=== PATIENT | male | born 1980 | race Caucasian/White ===

== ENCOUNTER 2018-02-09 14:27 | Emergency (ER) | payer SELFPAY ==
[2018-02-09 16:13] LABS: BASOPHILS 0.2 % (0-2); EOSINOPHILS 2.5 % (0-7); HEMATOCRIT 41.8 % (42.0-54.0); HEMOGLOBIN 14.8 g/dL (13.5-17.5); LYMPHOCYTES 27.1 % (15-50); MCHC 35.4 g/dL (31.0-37.0); MCV 93.1 fL (80.0-100.0); MEAN PLATELET VOLUME 10.2 fL (7.4-10.4); MONOCYTES 11.5 % (2-11); NEUTROPHILS 58.7 % (40-80); PLATELET COUNT 189 10x3/uL (130-400); RBC 4.49 10x6/uL (4.20-6.10); RDW 12.7 % (11.5-14.5)
[2018-02-09 16:34] LABS: ALBUMIN 3.2 g/dL (3.4-5.0); ALKALINE PHOSPHATASE 62 U/L (46-116); ALT (SGPT) 24 U/L (10-68); BILIRUBIN - TOTAL 0.35 mg/dL (0.2-1.3); C-REACTIVE PROTEIN 7.9 mg/dL (0.0-0.9); CALC OSMOLALITY 272 mosm/kg (275-300); CALCIUM 8.9 mg/dL (8.5-10.1); CARBON DIOXIDE 23.3 mmol/L (21.0-32.0); CHLORIDE - SERUM 103 mmol/L (98-107); CREATININE - SERUM 0.8 mg/dL (0.6-1.3); GLUCOSE 88 mg/dL (74-106); PROTEIN - SERUM 7.5 g/dL (6.4-8.2); SODIUM 138 mmol/L (136-145); UREA NITROGEN 8 mg/dL (7-18); eGFR NON AFRICAN AMERICAN > 90 mL/min (90-120)
== END 2018-02-09 18:04 | disposition home or self-care (01) ==
LOC: D.ER 14:27
PROVIDERS: Nurse Practitioner Family
DX: L03.115 Cellulitis of right lower limb (principal); S81.841A Puncture wound with foreign body, right lower leg, initial encounter; X58.XXXA Exposure to other specified factors, initial encounter; Y93.9 Activity, unspecified; Y92.9 Unspecified place or not applicable; I10 Essential (primary) hypertension

== ENCOUNTER 2019-10-11 12:33 | Emergency (ER) | payer MEDICAID ==
[~2019-10-11] VITALS: Ht 185.4 cm; Wt 100.0 kg
[2019-10-11 12:37] VITALS: Ht 185.4 cm; Wt 100.0 kg
[2019-10-11 12:56] LABS: APPEARANCE CLOUDY (CLEAR); COLOR ORANGE (YELLOW)
[2019-10-11 12:58] LABS: BACTERIA MODERATE /hpf (NEGATIVE); EPITHELIAL CELLS NSEEN /hpf (0-5); WHITE CELLS - URINE >50 /hpf (NEGATIVE)
[2019-10-11] MEDS ORDERED: DOXYCYCLINE HY100 M2 PO (13:25)
[2019-10-11 14:02] LABS: BASOPHILS 0.2 % (0-2); EOSINOPHILS 0.9 % (0-7); HEMOGLOBIN 15.1 g/dL (13.5-17.5); IMMATURE GRANULOCYTES 0.5 % (0-5); LYMPHOCYTES 15.7 % (15-50); MCH 32.5 pg (26.0-34.0); MCHC 34.3 g/dL (31.0-37.0); MCV 94.6 fL (80.0-100.0); MEAN PLATELET VOLUME 9.7 fL (7.4-10.4); MONOCYTES 11.5 % (2-11); NEUTROPHILS 71.2 % (40-80); RBC 4.65 10x6/uL (4.20-6.10); RDW 12.3 % (11.5-14.5); WBC 13.3 10x3/uL (4.8-10.8)
[2019-10-11 14:04] LABS: PLATELET COUNT 230 10x3/uL (130-400)
[2019-10-11 14:12] LABS: CALC OSMOLALITY 275 mosm/kg (275-300); CALCIUM 9.3 mg/dL (8.5-10.1); CARBON DIOXIDE 32.9 mmol/L (21.0-32.0); CHLORIDE - SERUM 101 mmol/L (98-107); CREATININE - SERUM 0.9 mg/dL (0.6-1.3); GLUCOSE 113 mg/dL (74-106); POTASSIUM - SERUM 4.5 mmol/L (3.5-5.1); SODIUM 138 mmol/L (136-145); UREA NITROGEN 9 mg/dL (7-18); eGFR NON AFRICAN AMERICAN > 90 mL/min (90-120)
[2019-10-11 14:51] VITALS: BP 142/89
[2019-10-14 18:08] LABS: CHLAMYDIA TRACHOMATIS, NAA Negative (Negative)
== END 2019-10-11 14:52 | disposition home or self-care (01) ==
LOC: D.ER 12:33
PROVIDERS: Emergency Medicine
DX: N39.0 Urinary tract infection, site not specified (principal)

== ENCOUNTER 2020-02-20 15:44 | Emergency (ER) | payer MEDICAID ==
[~2020-02-20] VITALS: Ht 185.4 cm; Wt 106.8 kg
[~2020-02-20 15:44] MED LIST: DOXYCYCLINE HY100 M2 PO
[2020-02-20 15:56] VITALS: BP 138/86; Ht 185.4 cm; Wt 106.8 kg
[2020-02-20] MEDS ORDERED: VOLTAREN75 MG PO (16:22)
[2020-02-20] MEDS ORDERED: VIBRAMYCIN 100100 MG PO (16:22)
== END 2020-02-20 17:22 | disposition home or self-care (01) ==
LOC: D.ER 15:44
DX: L03.115 Cellulitis of right lower limb (principal); M79.661 Pain in right lower leg

== ENCOUNTER 2020-02-24 12:32 | Emergency (ER) | payer MEDICAID ==
[~2020-02-24] VITALS: Ht 185.4 cm; Wt 109.1 kg
[~2020-02-24 12:32] MED LIST changes: +VIBRAMYCIN 100100 MG PO; +VOLTAREN75 MG PO
[2020-02-24 12:43] VITALS: Ht 185.4 cm; Wt 109.1 kg
[2020-02-24] MEDS ORDERED: KEFLEX500 MG PO (12:58)
[2020-02-24 13:11] VITALS: BP 124/83
== END 2020-02-24 13:12 | disposition home or self-care (01) ==
LOC: D.ER 12:32
DX: L03.115 Cellulitis of right lower limb (principal)

== ENCOUNTER → 2020-05-02 08:13 | Outpatient (CLI) | payer MEDICAID ==
[2020-02-24 12:43] VITALS: BMI 31.7
[~2020-05-02 08:13] MED LIST changes: +KEFLEX500 MG PO
== END | disposition home or self-care (01) ==
LOC: D.US 04-27 08:30
PROVIDERS: ATTEND Nurse Practitioner
DX: M79.661 Pain in right lower leg (principal)